=== PATIENT | female | born 1975 | race African-American/Black ===

== ENCOUNTER 2017-08-24 21:49 | Emergency (ER) | payer MEDICAID ==
[~2017-08-24] VITALS: Ht 175.3 cm; Wt 88.5 kg
[2017-08-24 21:57] VITALS: BP 127/82
[2017-08-24] MEDS ORDERED: MORPHINE SULFATE INJ 4 MG/ML DISP.SYRIN ONE (22:12)
[2017-08-24] MEDS ORDERED: ONDANSETRON 4 MG TAB.RAPDIS ONE (22:13)
[2017-08-24] MEDS ORDERED: ONDANSETRON 4 MG TAB.RAPDIS SL ONE (22:30)
[2017-08-24] MEDS ORDERED: MORPHINE SULFATE INJ 4 MG/ML DISP.SYRIN IM ONE (22:30)
--- NOTE | 2017-08-24 23:01 | NUR ---
PT WAS INSTUCTED NOT TO DRIVE. PT IS TAKING A [facility] HOME.
== END 2017-08-24 23:03 | disposition home or self-care (01) ==
LOC: ER 21:57
DX: K02.9 Dental caries, unspecified (principal); K08.89 Other specified disorders of teeth and supporting structures
CPT/HCPCS: 96372; 99283; A4606; J2270; Q0162; Z7610